=== PATIENT | female | born 1985 | race Caucasian/White ===

== ENCOUNTER → 2020-08-21 | Outpatient (CLI) | payer BC, OTHER ==
[~2020-08-21] MED LIST: FUROSEMIDE 10 MG/ML 2 ML VIAL IV ONE
--- NOTE | 2020-08-21 14:36 | NM ---
EXAMINATION TYPE: NM lasix renogram DATE OF EXAM: 08/21/2020 COMPARISON: NONE HISTORY: N13.30 Hydronephrosis Following administration of 10.8 mCi Tc 99m MAG3 with 20mg Lasix. Immediate images post injection FINDINGS: Left: 22.7 %. Right: 77.3 %. Max renal flow left: 5.0003 minutes. Max renal flow right: 77.3 minutes. Satisfactory accumulation of radiotracer within both renal collecting systems. After the administrati on of Lasix, there is prompt excretion from both collecting systems. T 1/2 left: 13.1 minutes. T 1/2 right: 8.536 minutes. IMPRESSION: Decreased flow and uptake left kidney relative to its right-sided counterpart with mild hydronephrosi s seen.
== END | disposition home or self-care (01) ==
LOC: RADNMMAIN 10:50
PROVIDERS: ATTEND Urology
DX: N13.30 Unspecified hydronephrosis (principal); R94.4 Abnormal results of kidney function studies
CPT/HCPCS: 78708; A9562

== ENCOUNTER → 2020-09-16 | Outpatient (CLI) | payer BC, OTHER ==
[~2020-09-16] MED LIST changes: +FUROSEMIDE 10 MG/ML 10 ML VIAL IVP PRN; -FUROSEMIDE 10 MG/ML 2 ML VIAL IV ONE
[2020-09-16 11:33] VITALS: BP 121/80; PULSE 69; RESP 16
--- NOTE | 2020-09-16 12:00 | XR ---
EXAMINATION TYPE: XR IVP DATE OF EXAM: 09/16/2020 COMPARISON: Nuclear medicine Lasix renogram August 21, 2020 HISTORY: History of left-sided hydronephrosis related to obstructive cervical cancer TECHNIQUE: Following intravenous administration of 100 cc [id number], multiple spot images are obtain ed. The preliminary film of the abdomen reveals no significant abnormality. No definite nephrolithiasis i s seen. Cholecystectomy clips are noted. Following intravenous administration of contrast material, sequential films of the abdomen were obtai humaira. There is prompt and symmetrical excretion of the contrast by both kidneys which demonstrate sli ghtly diminished size to left kidney versus right kidney. Normal configuration is noted. The collect ing systems and visualized portions of the ureters reveal no abnormality. No significant hydronephros is or hydroureter. There is no mass or obstruction visualized. There is gradual accumulation of con trast material in the urinary bladder showing no gross abnormality. 10 mg of IV Lasix was given as re quested. This causes increased excretion with new mild left greater than right pyelocaliectasis. No h ydroureter. The post-voiding film shows minimal residual contrast in the collecting systems and urina ry bladder. IMPRESSION: Persistent diminished size to left kidney versus right kidney. No significant hydronephro sis currently.
== END | disposition home or self-care (01) ==
LOC: RADFLMAIN 09:51
PROVIDERS: ATTEND Urology
DX: N13.30 Unspecified hydronephrosis (principal)
CPT/HCPCS: 96374; 74400; J1940; Q9967

== ENCOUNTER 2021-06-18 09:38 | Day surgery (SDC) | payer BC, OTHER ==
[2021-06-17 10:17] VITALS: BMI 29.5
[~2021-06-18 09:38] MED LIST changes: -FUROSEMIDE 10 MG/ML 10 ML VIAL IVP PRN; +LACTATED RINGERS 1,000 ML IV SCH
[2021-06-18 09:56] VITALS: RESP 18; TEMP 97
[2021-06-18] MEDS ORDERED: LIDOCAINE 1% INJ 10MG/ML (20 ML MDV) ONE (10:30)
[2021-06-18] MEDS ORDERED: PROPOFOL 10 MG/ML 20 ML VIAL IV ONE (10:30)
--- NOTE | 2021-06-18 10:37 | P.GSHP ---
History of Present Illness H&P Date: 06/18/21 CHIEF COMPLAINT: GERD and change in bowel habits HISTORY OF PRESENT ILLNESS: The patient is a 35-year-old female who presents with gastroesophageal reflux disease and change in bowel habits. Upper and lower endoscopy were offered for further evaluation and management. PAST MEDICAL HISTORY: Please see list. PAST SURGICAL HISTORY: Please see list. MEDICATIONS: Please see list. ALLERGIES: Please see list. SOCIAL HISTORY: No illicit drug use FAMILY HISTORY: No reports of Crohn disease or ulcerative colitis. REVIEW OF ORGAN SYSTEMS: CONSTITUTIONAL: No reports of fevers or chills. PHYSICAL EXAM: VITAL SIGNS: Stable GENERAL: Well-developed pleasant in no acute distress. HEENT: No scleral icterus. Extraocular movements grossly intact. Moist buccal mucosa. NECK: Supple without lymphadenopathy. CHEST: Unlabored respirations. Equal bilateral excursions. CARDIOVASCULAR: Regular rate and rhythm. Distal 2+ pulses. ABDOMEN: Soft, nondistended. MUSCULOSKELETAL: No clubbing, cyanosis, or edema. ASSESSMENT: 1. Gastroesophageal reflux disease 2. Change in bowel habits PLAN: 1. Recommend proceeding with an upper and lower endoscopy Past Medical History Past Medical History: Cancer, Thyroid Disorder Additional Past Medical History / Comment(s): migraines, CT/PET scan "they see something in bowel area", thyroid goiter, cervical cancer History of Any Multi-Drug Resistant Organisms: None Reported Past Surgical History: Cholecystectomy, Hysterectomy, Orthopedic Surgery Additional Past Surgical History / Comment(s): sinus surgery, left shoulder surgery Past Anesthesia/Blood Transfusion Reactions: No Reported Reaction Smoking Status: Never smoker - Past Family History Mother Family Medical History: No Reported History Medications and Allergies Home Medications Medication Instructions Recorded Confirmed Type Calcium Carbonate/Vitamin D3 1 each PO DAILY 06/17/21 06/18/21 History [Calcium 500-Vit D3 15 Mcg (600 Iu)] Cetirizine HCl [Zyrtec] 10 mg PO DAILY 06/17/21 06/18/21 History Collagen Tab 1,000 mg PO HS 06/17/21 06/18/21 History Ergocalciferol [Vitamin D2 (1250 1,250 mcg PO SUFR 06/17/21 06/18/21 History Mcg = 02553 Iu)] Estradiol [Estrace] 1 mg PO HS 06/17/21 06/18/21 History diphenhydrAMINE [Benadryl] 50 mg PO HS PRN 06/17/21 06/18/21 History Allergies Allergy/AdvReac Type Severity Reaction Status Date / Time No Known Allergies Allergy Verified 06/18/21 09:49 Surgical - Exam Vital Signs Temp Pulse Resp BP Pulse Ox 97 F L 69 18 129/66 97 06/18/21 09:53 06/18/21 09:53 06/18/21 09:53 06/18/21 09:53 06/18/21 09:53
--- NOTE | 2021-06-18 10:42 | P.PCN ---
Date of Procedure: 06/18/21 Description of Procedure: PREOPERATIVE DIAGNOSIS: Gastroesophageal reflux disease. POSTOPERATIVE DIAGNOSIS: Gastritis acute with bleeding Gastroesophageal reflux disease. OPERATION: Esophagogastroduodenoscopy with biopsies along antrum. SURGEON: Chikis Ulrich MD ANESTHESIA: MAC. INDICATIONS: The patient is a 35-year-old female who presents with a history of reflux disease. Benefits and risks of the procedure were described. Informed consent was obtained. DESCRIPTION: The patient was brought into the endoscopy suite and laid in the left lateral decubitus position. An Olympus gastroscope was passed along the posterior oropharynx down to the distal esophagus where the squamocolumnar junction was encountered at 40 cm from the incisors. The stomach was entered and no bile reflux was found. Additional findings are listed below. Biopsies with cold forceps were obtained of the antrum. The first through third portion of the duodenum was examined and unremarkable. Retroflexion of the scope confirmed Hill grade 1 lower esophageal valve. The squamocolumnar junction demonstrated LA grade C erosive esophagitis. The stomach was desufflated. The patient tolerated the procedure well. FINDINGS: Squamocolumnar junction 40 cm from the incisors. Diaphragmatic hiatus at 40 cm. Hill grade 1 lower esophageal valve. LA grade B erosive esophagitis. No active duodenitis. Acute gastritis with recent bleed RECOMMENDATIONS: Omeprazole 40 mg daily for 2 weeks
--- NOTE | 2021-06-18 11:00 | P.PCN ---
Date of Procedure: 06/18/21 Description of Procedure: PREOPERATIVE DIAGNOSIS: Change in bowel habits Abnormal computed tomography scan with history of gynecological cancer POSTOPERATIVE DIAGNOSIS: Colonoscopy screening. Change in bowel habits Abnormal computed tomography scan with history of gynecological cancer OPERATION: Colonoscopy to the cecum, ileocecal valve and appendiceal orifice. SURGEON: Chikis Ulrich MD. ANESTHESIA: MAC. INDICATIONS: The patient is a 35-year-old female who presents with change in bowel habits including a normal computed tomography scan with history of gynecological cancer. Benefits and risks were described and informed consent was obtained. DESCRIPTION OF PROCEDURE: The patient had undergone Sutab prep. The patient had been brought into the operating room and laid in the left lateral decubitus position. After adequate intravenous sedation, the rectum was examined with 2% lidocaine jelly. No external hemorrhoids were encountered. The rectal tone was within normal limits. No lesions were palpated in the rectal vault. An Olympus colonoscope was advanced until the cecum, ileocecal valve and appendiceal orifice were clearly viewed. The prep was excellent. No scattered diverticulosis was encountered. No colonic polyps were found. No evidence of focal colitis was found. Retrofl exion of the scope demonstrated grade 1 internal hemorrhoids without active bleeding or inflammation. The colon was desufflated. The patient had tolerated the procedure well. Withdrawal time was over 6 minutes. FINDINGS: Aronchick preparation quality scale 1 (1-5) Internal hemorrhoids, grade 1 No external prolapsed hemorrhoids. No arteriovenous malformations. No adenomatous polyps. No focal colitis. RECOMMENDATIONS: Lower endoscopy as needed Plan - Discharge Summary New Discharge Prescriptions: Continue diphenhydrAMINE [Benadryl] 50 mg PO HS PRN PRN Reason: allergies Cetirizine HCl [Zyrtec] 10 mg PO DAILY Calcium Carbonate/Vitamin D3 [Calcium 500-Vit D3 15 Mcg (600 Iu)] 1 each PO DAILY Estradiol [Estrace] 1 mg PO HS Ergocalciferol [Vitamin D2 (1250 Mcg = 36724 Iu)] 1,250 mcg PO SUFR Collagen Tab 1,000 mg PO HS Discharge Medication List Calcium Carbonate/Vitamin D3 [Calcium 500-Vit D3 15 Mcg (600 Iu)] 1 each PO DAILY 06/17/21 [History] Cetirizine HCl [Zyrtec] 10 mg PO DAILY 06/17/21 [History] Collagen Tab 1,000 mg PO HS 06/17/21 [History] Ergocalciferol [Vitamin D2 (1250 Mcg = 10289 Iu)] 1,250 mcg PO SUFR 06/17/21 [History] Estradiol [Estrace] 1 mg PO HS 06/17/21 [History] diphenhydrAMINE [Benadryl] 50 mg PO HS PRN 06/17/21 [History] Follow up Appointment(s)/Referral(s): Chikis Ulrich MD [STAFF PHYSICIAN] - 06/24/21 Patient Instructions/Handouts: *Sur[facility] - (Anesthesia) Endoscopy Discharge Instructions, Gastritis (DC), Diet for Stomach Ulcers and Gastritis (GEN), Colonoscopy (DC) Discharge Disposition: HOME SELF-CARE
[2021-06-18 11:31] VITALS: BP 113/78; PULSE 63
== END 2021-06-18 11:34 | disposition home or self-care (01) ==
LOC: ORWHC2ENDO 09:38
PROVIDERS: ATTEND Surgery Plastic and Reconstructive Surgery
DX: R19.4 Change in bowel habit (principal); K21.9 Gastro-esophageal reflux disease without esophagitis; K29.50 Unspecified chronic gastritis without bleeding; E07.9 Disorder of thyroid, unspecified; K29.00 Acute gastritis without bleeding; K64.8 Other hemorrhoids; E04.9 Nontoxic goiter, unspecified; J30.9 Allergic rhinitis, unspecified; G43.909 Migraine, unspecified, not intractable, without status migrainosus; Z85.41 Personal history of malignant neoplasm of cervix uteri; Z79.899 Other long term (current) drug therapy; Z90.49 Acquired absence of other specified parts of digestive tract; Z90.710 Acquired absence of both cervix and uterus
CPT/HCPCS: 88305; 45378; 43239; J2001; J2704